=== PATIENT | female | born 1995 | race Caucasian/White ===

== ENCOUNTER 2018-08-12 10:58 | Emergency (ER) | payer OTHER ==
[2018-08-12 11:14] VITALS: BP 104/63
--- NOTE | 2018-08-12 11:29 | UC ---
Skin Complaint HPI - HPI Summary HPI Summary: Patient was seen yesterday for a wound to the left breast. The wound is from an ill fitting bra. She was treated with Keflex has had 4 doses. THe redness and pain is spreading up the breast and is now on her stomach. She complains of feeling warm and chilled and just not feeling well. the wound is a linear scab on the underside of the breast. Her skin is very dry from the medication she takes for acne. - History of Current Complaint Chief Complaint: UCSkin Time Seen by Provider: 08/12/18 11:16 Stated Complaint: SKIN ISSUE Hx Obtained From: Patient Hx Last Menstrual Period: 07/29/18 ?: No Onset/Duration: Sudden Onset, Lasting Days Skin Exposure Onset/Duration: Days Ago Timing: Constant Onset Severity: Moderate Current Severity: Moderate Pain Intensity: 6 Location: Diffuse - beck the left breast and abdomen Character: Swelling, Redness, Painful Aggravating Factor(s): Touch Alleviating Factor(s): Nothing Associated Signs & Symptoms: Positive: Chills Related History: Trauma - Allergy/Home Medications Allergies/Adverse Reactions: Allergies Allergy/AdvReac Type Severity Reaction Status Date / Time No Known Allergies Allergy Verified 08/12/18 11:14 Home Medications: Home Medications Cephalexin CAP* [Keflex CAP*] 500 mg PO TID 08/12/18 [History Confirmed 08/12/18 ] ISOtretinoin [Isotretinoin] 60 mg PO BID 08/12/18 [History Confirmed 08/12/18] Ibuprofen TAB* [Advil TAB*] 600 mg PO Q6H PRN 08/12/18 [History Confirmed ] PMH/Surg Hx/FS Hx/Imm Hx Previously Healthy: Yes - Surgical History Surgical History: None - Family History Known Family History: Negative: Hypertension - Social History Alcohol Use: Occasionally Substance Use Type: None Smoking Status (MU): Never Smoked Tobacco Review of Systems All Other Systems Reviewed And Are Negative: Yes Constitutional: Positive: Chills, Fatigue Skin: Positive: Other - redness and scabbed wound n left breast Eyes: Positive: Negative ENT: Positive: Negative Respiratory: Positive: Negative Cardiovascular: Positive: Negative Gastrointestinal: Positive: Negative Genitourinary: Positive: Negative Motor: Positive: Negative Neurovascular: Positive: Negative Musculoskeletal: Positive: Negative Neurological: Positive: Negative Psychological: Positive: Negative Is Patient Immunocompromised?: No Physical Exam Triage Information Reviewed: Yes Appearance: Well-Nourished, Ill-Appearing, Pain Distress Vital Signs: Initial Vital Signs Temp 98.1 F 08/12/18 11:08 Pulse 93 08/12/18 11:08 Resp 16 08/12/18 11:08 BP 104/63 08/12/18 11:08 Pulse Ox 99 08/12/18 11:08 Vital Signs Reviewed: Yes Eye Exam: Normal ENT Exam: Normal Dental Exam: Normal Neck exam: Normal Respiratory Exam: Normal Respiratory: Positive: Chest non-tender, Lungs clear, Normal breath sounds Cardiovascular Exam: Normal Cardiovascular: Positive: RRR, No Murmur, Pulses Normal Abdomen Description: Positive: Nontender, No Organomegaly, Soft, Other: - erythema of the upper abdomen and left breast Bowel Sounds: Positive: Present Musculoskeletal Exam: Normal Neurological Exam: Normal Psychological Exam: Normal Skin: Positive: Other - erythema of left breast, spreading to the upper abdomen. linear scabbed wound on under side of breast Course/Dx - Course Course Of Treatment: hx obtained, exam performed ,meds reviewed, discharged to home with recommendation to report to ER for further evaluation due to the rapid spread of the erythema, and gerneal malaise. vital signs are stable at this time - Differential Diagnoses - Skin Complaint Differential Diagnoses: Abscess, Cellulitis, Contact Dermatitis, Lymphangitis, MRSA - Diagnoses Provider Diagnosis: Cellulitis of left breast Discharge - Sign-Out/Discharge Documenting (check all that apply): Patient Departure All imaging exams completed and their final reports reviewed: Yes - Discharge Plan Condition: Stable Disposition: HOME-RECOMMEND TO ED Patient Education Materials: Cellulitis (ED) Referrals: No Primary Care Phys,NOPCP [Primary Care Provider] - Additional Instructions: 1. Report to ER for further evaluation - Billing Disposition and Condition Condition: STABLE Disposition: Home-Recommend to ED
== END 2018-08-12 11:27 | disposition home health service (06) ==
LOC: UCEAST 10:58
DX: N61.0 Mastitis without abscess (principal)
CPT/HCPCS: 99202; G0463